=== PATIENT | male | born 1945 | race Asian ===

== ENCOUNTER 2024-12-03 09:34 | Emergency (ER) | payer BC, OTHER ==
[2024-12-03 09:42] VITALS: BMI 32.3
[2024-12-03] MEDS ORDERED: ONDANSETRON 4 MG/2 ML VIAL ONE (10:10)
[2024-12-03] MEDS ORDERED: ACETAMINOPHEN INJECTION 100 ML ONE (10:10)
[2024-12-03] MEDS: ONDANSETRON 4 MG/2 ML VIAL IVPB ONE (10:38)
[2024-12-03] MEDS: ACETAMINOPHEN 1000 MG/100 ML BAG IVPB ONE (10:42)
[2024-12-03] MEDS: SODIUM CHLORIDE 0.9% 500 ML INFUS.BAG IV ONE (10:42)
[2024-12-03 10:54] LABS: BASO % 0.3 % (0-2.0); EOS % 1.2 % (0-4.5); HEMATOCRIT 46.7 % (35.4-49); HEMOGLOBIN 15.7 GM/dL (11.7-16.9); LYMPH % 6.5 % (8-40); MCH 26.7 pg (25.7-33.7); MCHC 33.6 g/dl (32.0-35.9); MEAN CELL VOLUME 79.3 fl (80-96); MEAN PLT VOLUME 7.2 fl (7.5-11.1); MONO % 6.8 % (3.8-10.2); NEUT % 85.2 % (42.8-82.8); PLATELET COUNT 423 10^3/uL (134-434); RBC 5.88 M/mm3 (4.00-5.60); RDW 16.6 % (11.9-15.9); WHITE BLOOD COUNT 9.8 K/mm3 (4.0-10.0)
[2024-12-03 10:57] LABS: INR 1.3 (0.83-1.09); PROTHROMBIN TIME (PATIENT) 14.2 SEC (9.7-13.0)
[2024-12-03 11:00] LABS: ACTIVATED PTT 37.3 SECONDS (25.2-36.5)
[2024-12-03] MEDS: FAMOTIDINE 20 MG/50 ML IVPB 20 MG/50 ML MG IVPB ONE (11:23)
[2024-12-03] MEDS ORDERED: FAMOTIDINE 20 MG/50 ML IVPB 20 MG/50 ML MG IVPB ONE (11:25)
[2024-12-03] MEDS ORDERED: CEFTRIAXONE 1 G/50 ML PREMIX 50 ML IVPB ONE (11:57)
[2024-12-03] MEDS: CEFTRIAXONE 1,000 MG in DEXTROSE 5%-WATER - 50 ML IVPB ONE (12:02)
[2024-12-03 12:03] LABS: POTASSIUM 4.7 mmol/L (3.5-5.1)
[2024-12-03 12:06] LABS: CALCIUM 9.3 mg/dL (8.5-10.1)
[2024-12-03 12:07] LABS: BLOOD UREA NITROGEN 28.3 mg/dL (7-18); MAGNESIUM 2.6 mg/dL (1.8-2.4)
[2024-12-03 12:09] LABS: CREATININE 1.1 mg/dL (0.55-1.3)
[2024-12-03 12:11] LABS: BILIRUBIN,TOTAL 0.9 mg/dL (0.2-1); TOT PROT 7.4 g/dl (6.4-8.2)
[2024-12-03] MEDS ORDERED: AZITHROMYCIN IVPB 500 MG/250 ML BAG IVPB ONE (12:24)
[2024-12-03] MEDS: AZITHROMYCIN IVPB 500 MG in DEXTROSE 5%-WATER - 250 ML IVPB ONE (12:35)
[2024-12-03 13:26] VITALS: BP 107/68; PULSE 87; RESP 16; TEMP 98
[2024-12-03 16:15] LABS: HIV INTERPRETATION NEGATIVE (NEGATIVE)
== END 2024-12-03 13:30 | disposition home or self-care (01) ==
LOC: JER 09:34
PROC: 3E03329 Introduction of Other Anti-infective into Peripheral Vein, Percutaneous Approach (ICD-10-PCS; principal; 2024-12-03)
PROC: 3E03329 Introduction of Other Anti-infective into Peripheral Vein, Percutaneous Approach (ICD-10-PCS; 2024-12-03)
PROC: 3E033GC Introduction of Other Therapeutic Substance into Peripheral Vein, Percutaneous Approach (ICD-10-PCS; 2024-12-03)
PROC: 3E033NZ Introduction of Analgesics, Hypnotics, Sedatives into Peripheral Vein, Percutaneous Approach (ICD-10-PCS; 2024-12-03)
PROC: 3E033GC Introduction of Other Therapeutic Substance into Peripheral Vein, Percutaneous Approach (ICD-10-PCS; 2024-12-03)
DX: J18.9 Pneumonia, unspecified organism (principal); R11.2 Nausea with vomiting, unspecified; R05.3 Chronic cough; R09.81 Nasal congestion; R10.84 Generalized abdominal pain; R68.83 Chills (without fever); J34.89 Other specified disorders of nose and nasal sinuses
CPT/HCPCS: 0241U-QW; 36415; 71045-TC-FY; 80053; 83690; 83735; 84484; 85025; 85610; 85730; 86803; 86850; 86900; 86901; 87389; 93005; 93010; 96365; 96367; 96368; 96375; 99285-25; J0131